=== PATIENT | female | born 1970 | race Caucasian/White ===

== ENCOUNTER 2022-06-19 12:22 | Observation (INO) | payer OTHER ==
[~2022-06-19] VITALS: Ht 165.1 cm; Wt 100.6 kg
[2022-06-19] MEDS ORDERED: METFORMIN HCL500 MG PO (12:31)
[2022-06-20] MEDS ORDERED: AMOX TR-K CLV1 EAC1 PO (11:39)
[2022-06-20] MEDS ORDERED: 12 HOUR DECONG120 M1 PO (11:40)
[2022-06-20] MEDS ORDERED: FLUTICASONE PRO16 GM NAS (11:40)
[2022-06-20] MEDS ORDERED: DEEP SEA44 ML NAS (11:40)
[2022-06-20] MEDS ORDERED: ADULT LOW DOSE81 MG PO (11:42)
[2022-06-20] MEDS ORDERED: PROBIOTIC1 EAC5 PO (11:43)
[2022-06-20] MEDS ORDERED: METFORMIN HCL500 MG PO (11:47)
--- NOTE | 2022-06-22 18:58 | EKG ---
[facility] [address] [facility] [place], [place] [address] Signed Sinus tachycardia Otherwise normal ECG Confirmed by Marcelino Nguyen MD [id number]) on 06/22/2022 6:58:14 PM Electronically Signed By: MARCELINO NGUYEN MD 06/22/22 1858 PATIENT NAME: CHARITY VERDUZCOIDA Electrocardiogram DATE OF : 70 PHYSICIAN: MARCELINO NGUYEN MD REPORT #: [id number] REPORT IS CONFIDENTIAL AND NOT TO BE RELEASED WITHOUT AUTHORIZATION
== END 2022-06-20 12:50 | disposition home or self-care (01) ==
LOC: ED 12:22 → MS 12:24
PROVIDERS: ADMIT Internal Medicine; ATTEND Internal Medicine
DX: G45.9 Transient cerebral ischemic attack, unspecified (principal); J01.41 Acute recurrent pansinusitis; R73.03 Prediabetes; I10 Essential (primary) hypertension; Z20.822 Contact with and (suspected) exposure to COVID-19
CPT/HCPCS: 36415; 70450; 70496; 70498; 71045; 80053; 80061; 83036; 85025; 85610; 85730; 87502; 93005; 93010; A9270; C9803; G0378; Q9967; U0003